=== PATIENT | female | born 1990 | race Caucasian/White ===

== ENCOUNTER 2023-12-28 10:33 | Emergency (ER) | payer OTHER, SELFPAY ==
[2023-12-28 10:35] VITALS: BP 125/101
[2023-12-28 10:43] VITALS: BP 124/74; BMI 25.2
[2023-12-28 10:48] VITALS: BP 124/74
--- NOTE | 2023-12-28 10:58 | ED.GENMED ---
History of Present Illness
General
Chief Complaint: Chest Pain
Source: patient
Exam Limitations: none
Time Seen by Provider: 12/28/23 10:42
Nursing documentation reviewed up to this point in time: agreed with
History of Present Illness
History of Present Illness:
33 yo female w h/o frequent PVC's followed by Cardiology at [place], last visit 1.5 yrs ago.
States she was driving about 1.5 hours ago, felt dizzy, called friend to talk her down as she does have hx panic attacks. Hung up continued to drive, still with dizziness, then felt numbness left arm and sweating so pulled over and called 911.
Presents with still feeling palpitations (as she usually can) denies chest pain currently but still 'a litte' numb left arm.\\
Medications:
Magnesium
Vitamin D
cortisol for sleep
Iron
Past History
Past History
ED Past Medical History: Other (Frequent PVCs, heart murmur)
ED Past Surgical History:
Social History
Tobacco: Non-smoker
Alcohol: Occasional
Personal:
Living: with family
Employment: Employed
Review of Systems
Review of Systems
Allergies reviewed?: Yes
All Other Systems: ROS reviewed and negative except as documented in HPI and ROS
Constitutional: Denies fever or fatigue
Respiratory: Denies trouble breathing
Cardiac: Reports chest pain (This has subsided), diaphoresis and palpitations; Denies syncope
ABD/GI: Denies abdominal pain, nausea, vomiting, diarrhea or anorexia
: Denies dysuria, frequency or difficulty voiding
Musculoskeletal: Reports no symptoms
Skin: Reports no symptoms
Neurological: Reports dizzy (This has subsided); Denies weakness or numbness
Phy Exam
Physical Exam
Physical Exam:
GENERAL: No acute distress. A&Ox3.
CONSTITUTIONAL: Afebrile.
EYES: PERRL, conjunctivae normal
ENMT: moist mucus membranes, Pharynx nl
RESPIRATORY: Regular respirations, nonlabored, lungs clear.
CARDIOVASCULAR: Regular rate and rhythm, audible bigeminal PVC's, no murmurs, no rubs.
GI: Soft, nontender, normal BS
MUSCULOSKELETAL: Moves with ease. Well perfused.
SKIN: Warm, dry, pink
PSYCH: Normal mood and affect. Well kept, interactive and appropriate
NEUROLOGIC: Awake, alert and oriented. No focal neurological deficits
Scores
Heart Score for Chest Pain Patients
STEMI patient?: Not applicable
Course
Orders/Labs/Results
Orders:
Orders
12/28/23 10:37
EKG [Electrocardiogram (*1)] Urgent
Reason for Study: Chest Pain
EKG- Treatment ONCE
12/28/23 10:57
Complete Blood Count/With Diff Urgent
Comprehensive Metabolic Panel Urgent
Magnesium Urgent
Troponin I Urgent
Abnormal Lab Results
12/28/23
10:57
RBC 4.08 L 10^6/uL
(4.20-5.40)
Chloride 108 H mmol/L
(98-107)
Total Bilirubin 1.4 H mg/dl
(0.2-1.3)
Alkaline Phosphatase 24 L U/L
(38-126)
12/28/23 10:57
12/28/23 10:57
Vital Signs
Initial and Last Documented VS:
Initial Vital Signs
BP
125/101
12/28/23 10:35
Last Documented Vital Signs
Temp Pulse Resp BP Pulse Ox
98.0 F 42 16 111/65 99
12/28/23 10:43 12/28/23 14:00 12/28/23 14:00 12/28/23 14:00 12/28/23 14:00
MDM/Problems Addressed
Differential Diagnosis Includes:
symptomatic PVCs
MDM/Problems Addressed:
33 yo female w h/o frequent PVC's followed by Cardiology at [place], last visit 1.5 yrs ago.
States she was driving about 1.5 hours ago, felt dizzy, called friend to talk her down as she does have hx panic attacks. Hung up continued to drive, still with dizziness, then felt numbness left arm and sweating so pulled over and called 911.
Presents with still feeling palpitations (as she usually can) denies chest pain currently but still 'a little' numb left arm.\\
Medications:
Magnesium
Vitamin D
cortisol for sleep
Iron
Pt states she's heard that she had ventricular bigeminy in the past 'that sounds familiar' and has beta ramona rx at home but never filled it.
EKG: Sinus Rhythm w Bigeminal PVCs
11:30 AM:
CBC normal
CMP normal
Troponin normal
12:20 p.m.
Continues in ventricular bigeminy.
OOB and ambulated to , placed back on monitor: NSR for 15 seconds then back to [facility]
Pt states her symptoms do improve if she's up and moving around, worse at rest.
Dr. Hughes in to evaluate
1:20 PM:
Patient feeling better, no chest pain, no dizziness, no numbness or tingling in her arms
She will call her practical nursing instructor and make an appointment for next week.
Return instructions reviewed
Remains in bigeminy
Pt's Associate Director Career Services did finally get back to us, recommends 'pt should try that beta ramona, or we could have a telehealth call later today if she wants or next week, she could just call the office my nurse, Latasha RN extension [phone] main number
[phone]'
Pt notified and she will call. She will take the beta ramona as directed
*Critical Care Note
Total Time (30-74mins, 75-104mins- exclusive of procedures): Not Applicable
ED Attending Note
-
Portions of this chart may have been created with voice recognition software.� Occasional wrong word or��sound alike� substitutions may have occurred due to the inherent limitations of voice recognition software.
Discharge Plan
Departure
Patient Disposition: Home (Routine Discharge)
Date of Disposition: 12/28/23
Time of Disposition: 13:19
Patient with high blood pressure during this ER visit?: No
Condition: Good
Discharge Problem:
Ventricular bigeminy
Instructions: Ventricular premature beats, Chest pain
Prescriptions:
No Action
magnesium 250 mg Tablet
250 mg PO HS
ferrous sulfate 325 mg (65 mg iron) Tablet,Delayed Release (Dr/Ec)
325 mg PO HS
cholecalciferol (vitamin D3) [Vitamin D3] 25 mcg (1,000 unit) Capsule
25 mcg PO HS
Referrals:
Scott Chau [Other] - Next open appointment
Asa Ornelas DO [Family Provider] -
Activity Restrictions/Additional Instructions:
As we discussed your workup here today shows no sign of damage to your heart.
Since you are feeling better, no chest pain, dizziness or numbness in your arm, you may go home.
Call your Associate Director Career Services today and make follow up appointment as soon as possible.
Return here immediately for lightheadedness, dizziness, chest pain, chest pain with nausea, sweating or feeling worse in any way.
Interventions
Interventions:
*Risk Screen - Suicide Last Done: 12/28/23 10:43
*General Assessment Last Done: 12/28/23 10:43
*Neglect/Abuse Screening Last Done: 12/28/23 10:43
ED- Fall Risk Assessment Last Done: 12/28/23 10:53
*ED COVID-19 Vaccine History Last Done: 12/28/23 10:43
*Nursing Disposition Last Done: 12/28/23 14:03
ED- Cardiac Assessment Last Done: 12/28/23 10:53
Discharge Date and Time
Discharge Date/Time: 12/28/23 14:03
Print Language: GREEK
[2023-12-28 11:00] VITALS: BP 119/78
[2023-12-28 11:08] LABS: % Basophils 0.6 % (0-2); % Eosinophils 3.2 % (0-6); % Immature Granulocytes 0.3 % (0-0.5); % Lymphocytes 23.3 % (20.5-51.1); % Monocytes 6.7 % (1.7-9.3); % Neutrophils 65.9 % (42.2-75.2); Absolute Eosinophils 0.2 10^3/uL (0-0.7); Absolute Lymphocytes 1.5 10^3/uL (1.2-3.4); Absolute Monocytes 0.4 10^3/uL (0.1-0.6); Absolute Neutrophils 4.2 10^3/uL (1.4-6.5); Hemoglobin 12.5 g/dL (12.0-16.0); Mean Corp Hgb Conc. 33.8 g/dL (33.0-37.0); Mean Corpuscular Hgb 30.6 pg (27.0-31.0); Mean Corpuscular Volume 90.7 fL (81.0-99.0); Mean Platelet Volume 9.4 fL (7.4-10.4); Nucleated Red Blood Cells % 0 %; Platelet Count 184 10^3/uL (130-400); Red Blood Cell Count 4.08 10^6/uL (4.20-5.40); White Blood Cell Count 6.3 10^3/uL (4.8-10.8)
[2023-12-28 11:23] LABS: ALT (SGPT) 14 U/L (0-35); AST (SGOT) 17 U/L (14-36); Albumin 4.6 g/dl (3.5-5.0); Alkaline Phosphatase 24 U/L (38-126); Blood Urea Nitrogen 13 mg/dl (7-17); Calcium 9.4 mg/dl (8.4-10.2); Carbon Dioxide 24 mmol/L (22-30); Chloride 108 mmol/L (98-107); Estimated Creatinine Clearance 110 ml/min; Glucose 95 mg/dl (70-99); Potassium 4.1 mmol/L (3.5-5.1); Sodium 142 mmol/L (135-145); Total Bilirubin 1.4 mg/dl (0.2-1.3); eGFR > 60.00
[2023-12-28 11:34] LABS: Troponin I < 0.012 ng/ml
[2023-12-28 12:00] VITALS: BP 116/75
[2023-12-28 14:00] VITALS: BP 111/65
== END 2023-12-28 14:03 | disposition home or self-care (01) ==
LOC: EMR 10:33
PROVIDERS: EMERGENCY PHYSICIAN Emergency Medicine; FAMILY PHYSICIAN Family Medicine
DX: R00.8 Other abnormalities of heart beat (principal); I49.3 Ventricular premature depolarization; Z79.899 Other long term (current) drug therapy; R01.1 Cardiac murmur, unspecified
CPT/HCPCS: 99283; 80053; 83735; 84484; 85025; 93005